=== PATIENT | male | born 1980 | race Caucasian/White ===

== ENCOUNTER 2019-06-12 17:49 | Emergency (ER) | payer SELFPAY ==
--- NOTE | 2019-06-12 18:00 | PDOC ---
Rapid Medical Evaluation Time Seen by Provider: 06/12/19 17:58 Medical Evaluation: 06/12/19 17:58 I have performed a brief in-person evaluation of this patient. The patient presents with a chief complaint of: pain to left wrist s/p work accident on tuesday, machine fell on hand/wrist Pertinent physical exam findings: minimal bruising to dorsal aspect of left wrist I have ordered the following: hand/wrist x-ray The patient will proceed to the ED for further evaluation. Discharge Disposition - Diagnosis Wrist pain, left - Referrals - Patient Instructions - Post Discharge Activity
[2019-06-12 18:01] VITALS: BP 132/66; PULSE 58; TEMP 98; BMI 22.6
--- NOTE | 2019-06-12 19:09 | PDOC ---
History of Present Illness - General Chief Complaint: Injury Stated Complaint: PAIN Time Seen by Provider: 06/12/19 17:58 - History of Present Illness Initial Comments: 06/12/19 19:07 38-year-old male without comorbidities presents for evaluation of left wrist pain. He states a heavy piece of machinery fell on his left wrist 5 days ago. Past History - Past Medical History Allergies/Adverse Reactions: Allergies Allergy/AdvReac Type Severity Reaction Status Date / Time Penicillins Allergy Verified 06/12/19 18:00 Home Medications: Ambulatory Orders Ibuprofen [Motrin -] 600 mg PO TID #30 tablet 06/12/19 COPD: No - Psycho Social/Smoking Cessation Hx Smoking History: Never smoked Review of Systems - Review of Systems Musculoskeletal: Yes: Joint Pain *Physical Exam - Vital Signs Last Vital Signs Temp Pulse Resp BP Pulse Ox 98 F 58 L 18 132/66 100 06/12/19 17:57 06/12/19 17:57 06/12/19 17:57 06/12/19 17:57 06/12/19 17:57 - Physical Exam Comments: 06/12/19 19:07 Left wrist skin color and temperature normal range of motion is slightly limited terminal flexion and extension. 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 No gross sensorimotor deficits neurovascular intact snuffbox ulnar styloid and nontender Medical Decision Making - Medical Decision Making 06/12/19 19:08 X-rays of the left wrist show no evidence of fracture trauma or destructive process this is a crush injury to the left wrist wrist splint for comfort Motrin for pain discussed use of additional Tylenol follow-up with Ortho surgery Discharge - Discharge Information Problems reviewed: Yes Clinical Impression/Diagnosis: Wrist pain, left, Crushing injury of left wrist Condition: Stable Disposition: HOME - Admission No - Additional Discharge Information Prescriptions: Ibuprofen [Motrin -] 600 mg PO TID #30 tablet - Follow up/Referral Referrals: Jamari Vicente DO [Staff Physician] - - Patient Discharge Instructions Additional Instructions: Please take the Motrin as directed 1 tablet 3 times a day with food. Discontinue the medication if it bothers her stomach. Return to the emergency room for worsening symptoms. Without fail, please follow-up with orthopedic surgery in 2 to 3 days for further evaluation and treatment options. - Post Discharge Activity Work/Back to School Note: Back to Work
== END 2019-06-12 19:21 | disposition home or self-care (01) ==
LOC: JERFT 17:49
PROC: 2W3DX1Z Immobilization of Left Lower Arm using Splint (ICD-10-PCS; principal; 2019-06-12)
DX: W31.89XA Contact with other specified machinery, initial encounter (principal); Y93.89 Activity, other specified; Y92.69 Other specified industrial and construction area as the place of occurrence of the external cause; Y99.0 Civilian activity done for income or pay; Z88.0 Allergy status to penicillin
CPT/HCPCS: 73110-TC-LT-FY; 73130-TC-LT-FY; 99282-25